=== PATIENT | female | born 1995 | race Caucasian/White ===

== ENCOUNTER → 2018-07-04 10:53 | Outpatient (CLI) | payer BC ==
[2015-06-10 10:27] VITALS: BMI 33.4
[~2018-07-04 10:53] MED LIST: IBUPROFEN600 MG PO; PERCOCET 5-3251 TAB PO; PRENATABS RX TA1 TAB PO
== END | disposition home or self-care (01) ==
LOC: D.CT 10:53
DX: R10.30 Lower abdominal pain, unspecified (principal)